=== PATIENT | female | born 1965 | race Caucasian/White ===

== ENCOUNTER 2017-12-12 17:24 | Emergency (ER) | payer BC ==
[~2017-12-12] VITALS: Ht 157.5 cm; Wt 136.1 kg
[2017-12-12] MEDS ORDERED: HYDROCHLOROTH12.5 M1 PO (18:21)
[2017-12-12] MEDS ORDERED: ADVAIR HFA 230M12 GM INH (18:21)
[2017-12-12] MEDS ORDERED: NEXIUM40 MG PO (18:22)
[2017-12-12] MEDS ORDERED: VIVELLE-DOT1 EAC2 TRANSDERM (18:23)
[2017-12-12] MEDS ORDERED: XOPENEX HFA15 GM INH (18:25)
[2017-12-12 18:28] LABS: URINE BILIRUBIN NEGATIVE (Negative); URINE BLOOD NEGATIVE (Negative); URINE CLARITY CLEAR; URINE COLOR YELLOW; URINE GLUCOSE-RANDOM NEGATIVE (Negative); URINE KETONES NEGATIVE (Negative); URINE LEUKOCYTES-REFLEX NEGATIVE (Negative); URINE NITRITE-REFLEX POSITIVE (Negative); URINE PROTEIN NEGATIVE (Negative); URINE SPECIFIC GRAVITY >= 1.030 (1.005-1.030)
[2017-12-12 18:30] LABS: ABSOLUTE BASOPHILS 0.1 thou/uL (0.0-0.2); ABSOLUTE LYMPHOCYTES 1.4 thou/uL (0.8-5.3); ABSOLUTE MONOCYTES 0.6 thou/uL (0.0-1.2); ABSOLUTE NEUTROPHILS 9.3 thou/uL (1.6-8.1); BASOPHILS 0.6 %; EOSINOPHILS 0.2 %; HEMATOCRIT 43.8 % (37.0-47.0); HEMOGLOBIN 14.6 gm/dL (12.0-15.0); MCH 28.4 pg (26.0-34.0); MCHC 33.2 g/dL (28.0-37.0); MCV 85.5 fL (80.0-100.0); MONOCYTES 5.2 %; MPV 7.3 fl. (7.2-11.1); NUCLEATED RBCS 0 /100WBC; PLATELET COUNT* 265 thou/uL (150-400); RBC 5.13 mil/uL (4.20-5.00); RDW-CV 14.8 % (10.5-14.5); WBC 11.4 thou/uL (4.0-11.0)
[2017-12-12 18:37] LABS: SQUAMOUS >10 Many /LPF (0-3); TRANSITIONAL EPITHEL CELL 0-3 Few /LPF (None Seen); URINE WBC-REFLEX 6-15 Few /HPF (0-5)
[2017-12-12 18:38] LABS: CALCIUM 8.7 mg/dL (8.5-10.1); CREATININE 0.9 mg/dL (0.6-1.3); POTASSIUM 3.5 mmol/L (3.5-5.1)
[2017-12-12 18:38] LABS: BACTERIA-REFLEX >30 Many /HPF (None Seen); CASTS None Seen /LPF (None Seen); CRYSTALS None Seen /LPF (None Seen); MUCUS 0-3 Light strn/LPF (None Seen); URINE RBC 0-2 Rare /HPF (0-2)
[2017-12-12 18:42] LABS: ALBUMIN 3.2 g/dL (3.4-5.0); TOTAL BILIRUBIN 0.7 mg/dL (<0.1-1.0); TOTAL PROTEIN 7.5 g/dL (6.4-8.2)
[2017-12-12] MEDS ORDERED: BENTYL 20 MG TA20 M1 PO (18:50)
[2017-12-12] MEDS ORDERED: ZOFRAN4 MG PO (18:50)
[2017-12-12] MEDS ORDERED: MACROBID 100 M100 M1 PO (18:50)
[2017-12-12 19:41] VITALS: BP 141/66
== END 2017-12-12 19:42 | disposition home or self-care (01) ==
LOC: M.ERS 17:24
PROVIDERS: Nurse Practitioner Family
DX: R11.2 Nausea with vomiting, unspecified (principal); N39.0 Urinary tract infection, site not specified; R10.13 Epigastric pain; I10 Essential (primary) hypertension; J45.909 Unspecified asthma, uncomplicated; Z90.49 Acquired absence of other specified parts of digestive tract; Z90.710 Acquired absence of both cervix and uterus; Z88.2 Allergy status to sulfonamides

== ENCOUNTER 2019-07-27 22:32 | Emergency (ER) | payer BC ==
[~2019-07-27] VITALS: Ht 160 cm; Wt 136.1 kg
[~2019-07-27 22:32] MED LIST: ADVAIR HFA 230M12 GM INH; BENTYL 20 MG TA20 M1 PO; HYDROCHLOROTH12.5 M1 PO; MACROBID 100 M100 M1 PO; NEXIUM40 MG PO; VIVELLE-DOT1 EAC2 TRANSDERM; XOPENEX HFA15 GM INH; ZOFRAN4 MG PO
[2019-07-27 23:04] LABS: ABSOLUTE BASOPHILS 0.2 thou/uL (0.0-0.2); ABSOLUTE EOSINOPHILS 0.3 thou/uL (0.0-0.7); ABSOLUTE LYMPHOCYTES 4.6 thou/uL (0.8-5.3); ABSOLUTE MONOCYTES 0.9 thou/uL (0.0-1.2); ABSOLUTE NEUTROPHILS 7.3 thou/uL (1.6-8.1); BASOPHILS 1.5 %; HEMATOCRIT 44.8 % (37.0-47.0); LYMPHOCYTES 34.5 %; MCH 27.5 pg (26.0-34.0); MCHC 33.6 g/dL (28.0-37.0); MCV 81.9 fL (80.0-100.0); MONOCYTES 6.5 %; MPV 7.4 fl. (7.2-11.1); NUCLEATED RBCS 0 /100WBC; PLATELET COUNT* 317 thou/uL (150-400); POLYS 55.5 %; RBC 5.47 mil/uL (4.20-5.00); RDW-CV 14.6 % (10.5-14.5); WBC 13.2 thou/uL (4.0-11.0)
[2019-07-27 23:06] LABS: URINE BILIRUBIN NEGATIVE (Negative); URINE BLOOD NEGATIVE (Negative); URINE CLARITY CLEAR; URINE COLOR YELLOW; URINE GLUCOSE-RANDOM NEGATIVE (Negative); URINE KETONES NEGATIVE (Negative); URINE LEUKOCYTES-REFLEX NEGATIVE (Negative); URINE NITRITE-REFLEX NEGATIVE (Negative); URINE PROTEIN NEGATIVE (Negative); URINE SPECIFIC GRAVITY 1.025 (1.005-1.030); URINE UROBILINOGEN 0.2 E.U./dl (0.2-1.0)
[2019-07-27 23:12] LABS: CALCIUM 9.3 mg/dL (8.5-10.1); POTASSIUM 3.6 mmol/L (3.5-5.1)
[2019-07-27 23:17] LABS: ALBUMIN 3.6 g/dL (3.4-5.0); TOTAL BILIRUBIN 0.4 mg/dL (<0.1-1.0); TOTAL PROTEIN 8.1 g/dL (6.4-8.2)
[2019-07-28] MEDS ORDERED: HYDROCODON-ACE1 EAC8 PO (00:39)
[2019-07-28] MEDS ORDERED: FLAGYL500 M1 PO (00:39)
[2019-07-28] MEDS ORDERED: ZOFRAN ODT4 MG PO (00:39)
[2019-07-28] MEDS ORDERED: CIPROFLOXACIN500 M1 PO (00:39)
[2019-07-28 01:28] VITALS: BP 132/78
--- NOTE | 2019-07-28 13:52 | EKG ---
[place] [address] ELECTROCARDIOGRAM REPORT Name: CELSO WOLFF Room: [facility]#: [id number] Admission: 07/27/19 Attend Phys: Discharge: 07/28/19 Date of : 67 Report #: [id number] THIS REPORT FOR: //name// [facility] ED Test Date: 2019-07-27 Test Time: 23:19:29 Pat Name: CELSO WOLFF Department: Room: Gender: F [employer] Processing [employer] Operator: : [id number] Requested By: Artur Reid Order Number: [id number] MD: Ag Giron Measurements Intervals [place] Rate: 71 P: 28 LA: 192 QRS: 16 QRSD: 115 T: 25 QT: 415 QTc: 451 Interpretive Statements Sinus rhythm Nonspecific intraventricular conduction delay Low voltage, precordial leads No previous ECG available for comparison Electronically Signed On 07-28-2019 13:51:33 [employer]OMER [employer]ATIONS ADVISOR by Ag Giron [email or web address] <ELECTRONICALLY SIGNED> By: Ag Giron MD, [facility] 07/28/19 1351 2319 2319 Ag Giron MD, FACC /EPI
== END 2019-07-28 03:02 | disposition home or self-care (01) ==
LOC: M.ERS 22:32
PROVIDERS: Physician Assistant
DX: K57.32 Diverticulitis of large intestine without perforation or abscess without bleeding (principal); R11.2 Nausea with vomiting, unspecified; K58.9 Irritable bowel syndrome, unspecified; I10 Essential (primary) hypertension; J45.909 Unspecified asthma, uncomplicated; Z90.49 Acquired absence of other specified parts of digestive tract; Z90.711 Acquired absence of uterus with remaining cervical stump; Z91.040 Latex allergy status; Z88.2 Allergy status to sulfonamides